=== PATIENT | female | born 1955 | race Caucasian/White ===

== ENCOUNTER 2016-09-24 05:58 | Emergency (ER) | payer OTHER ==
--- NOTE | 2016-09-24 06:48 | CT REPORT ---
HISTORY: Fall. COMPARISON: None. TECHNIQUE: This examination was performed using automated exposure control, adjustment of mA or kV according to patient size, and/or use of iterative reconstruction technique. Axial thin section images obtained f rom skull base through head of the clavicles. Sagittal and coronal reformat images obtained. FINDINGS: There is no fracture. There is no prevertebral soft tissue swelling. Alignment is normal. There is no lytic or sclerotic lesion. Mineralization is normal. There is no gross soft tissue abnormality. There is mild multilevel intervertebral disc space height loss. Mild multilevel facet arthropathy i s also seen. IMPRESSION: No acute fracture or malalignment of the cervical spine. Final Electronic Signature: This report was electronically signed by Angelica Kim MD on 09/24/2016 6:45 AM. robert /
--- NOTE | 2016-09-24 06:53 | CT REPORT ---
HISTORY: Fall. COMPARISON: CT from 01/13/2016. TECHNIQUE: Axial non-contrast images obtained from skull vertex through foramen magnum. Dose reduction technique was utilized. FINDINGS: There is focal encephalomalacia in the right frontal lobe, likely from prior injury. Ex-vacuo dilatat ion of the right frontal horn is seen. There is stable prominence of the ventricles and sulci. There is a stable partially calcified 2.5 cm mass in the midline, superior to the cerebellar hemisphere. T here is no hemorrhage. There is atherosclerotic calcification the cavernous internal carotid arterie s right-sided craniotomy changes are seen.. No midline shift is identified. The paranasal sinuses are clear. IMPRESSION: 1. No acute intracranial abnormality. 2. Stable partially calcified 2.5 cm mass in the midline, superior cerebellar hemisphere, likely rep resenting a meningioma. Final Electronic Signature: This report was electronically signed by Angelica Kim MD on 09/24/2016 6:51 AM. robert /
--- NOTE | 2016-09-24 07:41 | ER PHYSICIAN DOCUMENTATION ---
Physician Documentation [facility] Name:Cara Coto Age:61 yrs Sex:Female :1955 Arrival Date:09/24/2016 Time:05:58 BedTrauma-A Private MD:Tyrel Polo EDbharatBernardo Disposition: 09/24/16 06:58 Discharged to Home/Self Care. Impression: Head Contusion, Unspecified Part of Head, Hip Contusion - : Left. - Condition is Good. - Discharge Instructions: HIP CONTUSION, Acute Brain Injuries - HEAD INJURY, No Wake-Up (Adult). - Medical Reconciliation form form. - Follow up: Tyrel Polo MD; When: 7 - 10 days; Reason: Recheck today's complaints, Continuance of care. - Problem is new. - Symptoms have improved. HPI: 09/24 06:08 This 61 yrs old Female presents to ER via EMS with complaints of Fall Injury. cd 06:08 Details of fall: The patient fell from an upright position, while walking, while going cd to the bathroom today. Onset: The symptom(s)/episode began/occurred acutely, this morning, 1 hour(s) ago. Associated injuries: The patient sustained injury to the head, contusion, left hip, contusion, painful injury. Associated signs and symptoms: Pertinent positives: pelvic pain, Patient has a history of decreased responsiveness and assisted care at [facility]. She had a Brain Tumor removed at age 16 and her current mentation is normal for her. She was last seen at 4 PM, then the staff found her on the bathroom floor at 5 PM. Unknown LOC. She had had a BM on the floor. The patient complained of head injury ,left arm and left hip pain. 911 was called and the patient was brought to the ED by ambulance.. Severity of symptoms: At their worst the symptoms were moderate, in the emergency department the symptoms have improved, mildly. The patient has experienced similar episodes in the past. Historical: - Allergies: PENICILLINS; - Home Meds: 1. levothyroxine 175 mcg oral tab 1 tab once daily 2. prednisone 5 mg oral tab 1 tab once daily 3. aspirin 81 mg oral tab 1 tab once daily 4. furosemide 80 mg oral tab 1 tab once daily 5. lisinopril 20 mg oral tab 1 tab once daily 6. potassium chloride 20 mEq oral TbTQ 1 tab once daily 7. simvastatin 20 mg oral tab 1 tab once daily in the evening 8. Desmopressin Acetate Nasal - Tetanus: < 10 years. - Ebola Screening: : Patient negative for fever greater than or equal to 101.5 degrees Fahrenheit, and additional compatible Ebola Virus Disease symptoms. Patient denies exposure to infectious person. Patient denies travel to an Ebola-affected area in the 21 days before illness onset. No symptoms or risks identified at this time. . - Immunization history: Flu Vaccine < 1 year. - Social history: Smoking status: Patient states was never smoker of tobacco. Patient/guardian denies using alcohol, street drugs. ROS: 06:14 Constitutional: Negative for fever, poor PO intake. cd 06:14 MS/extremity: Positive for injury or acute deformity, contusion, of the left arm and left hip. 06:14 Unable to obtain ROS due to patient's inability to understand questions. Exam: 06:15 Head/Face: Normocephalic, atraumatic. cd Eyes: Pupils equal round and reactive to light, extra-ocular motions intact. Lids and lashes normal. Conjunctiva and sclera are non-icteric and not injected. Cornea within normal limits. Periorbital areas with no swelling, redness, or edema. ENT: Nares patent. No nasal discharge, no septal abnormalities noted. Tympanic membranes are normal and external auditory canals are clear. Oropharynx with no redness, swelling, or masses, exudates, or evidence of obstruction, uvula midline. Mucous membranes moist. Chest/axilla: Normal chest wall appearance and motion. Nontender with no deformity. No lesions are appreciated. Cardiovascular: Regular rate and rhythm with a normal S1 and S2. No gallops, murmurs, or rubs. Normal PMI, no JVD. No pulse deficits. Respiratory: Lungs have equal breath sounds bilaterally, clear to auscultation and percussion. No rales, rhonchi or wheezes noted. No increased work of breathing, no retractions or nasal flaring. Abdomen/GI: Soft, non-tender, with normal bowel sounds. No distension or tympany. No guarding or rebound. No evidence of tenderness throughout. Back: No spinal tenderness. No costovertebral tenderness. Full range of motion. 06:15 Skin: Warm, dry with normal turgor. Normal color with no rashes, no lesions, and no cd evidence of cellulitis. 06:15 Constitutional: The patient appears alert, awake, non-diaphoretic, non-toxic, well developed, well nourished, obese. 06:15 Musculoskeletal/extremity: Extremities: noted in the left arm: pain, ROM: limited active range of motion due to pain, Circulation is intact in all extremities. Sensation intact. 06:15 Neuro: Exam negative for acute changes. Vital Signs: 06:02 Pulse Ox 100% ; mk2 06:05 BP 151 / 72 (auto/); mk2 06:08 BP 151 / 72; Pulse 76; Resp 15; Temp 98.2; Pulse Ox 85% on R/A; Weight 117.93 kg; mk2 Height 5 ft. 8 in. (172.72 cm); Pain 3/10; 06:08 Body Mass Index 39.53 (117.93 kg, 172.72 cm) mk2 MDM: 06:00 Patient medically screened. cd 06:16 Differential diagnosis: closed head injury, contusion, fracture. cd 06:17 Data reviewed: vital signs, nurses notes, old medical records, and as a result, I will cd continue to observe the patient, order radiologic studie(s), CT scan, plain X-ray(s). Data interpreted: Pulse oximetry: on 4L(s) per nasal cannula, is 100 %. Interpretation: normal. 07:00 Counseling: I had a detailed discussion with the patient and/or guardian regarding: the cd historical points, exam findings, and any diagnostic results supporting the discharge/admit diagnosis, radiology results, the need for outpatient follow up, for a recheck, with the patient's primary care provider, to return to the emergency department if symptoms worsen or persist or if there are any questions or concerns that arise at home. Response to treatment: the patient's symptoms have resolved after treatment, the patient is now symptom free, and as a result, I will discharge patient. 07:00 Test interpretation: by ED physician or midlevel provider: plain radiologic studies, cd Pelvis and Left Hip X-Rays were negative for fracture. 09/24 06:50 Order name: CAT SCAN; CERVICAL [id number]; Complete Time: 06:56 EDMS 09/24 06:56 Interpretation: Normal: See Report. cd 09/24 06:54 Order name: CAT SCAN; HEAD W/O CON [id number]; Complete Time: 06:56 EDMT 09/24 06:56 Interpretation: Abnormal: See Report; No acute change. cd Dispensed Medications: No medications were administered Signatures: Isabella Pickett, Bernardo Lara RN, MD MD cd Kruger, Meg, DAWN SEYMOUR mk2
--- NOTE | 2016-09-24 07:41 | ER NURSING DOCUMENTATION ---
Nurse's Notes [facility] Name:Cara Coto Age:61 yrs Sex:Female :1955 Arrival Date:09/24/2016 Time:05:58 BedTrauma-A Private MD:Tyrel Polo Diagnosis:Head Contusion, Unspecified Part of Head;Hip Contusion-: Left Presentation: 09/24 06:01 Presenting complaint: Patient states: [facility] states she was found down in the 2 bathroom after a fall and complained of left hip pain. Pt had a tumor removed at a young age and is non verbal. Pt FSBS 90 in route. Transition of care: [facility]. 06:01 Method Of Arrival: EMS: 420 mk2 06:01 Acuity: NICKIE 3 2 Triage Assessment: 06:06 General: Appears in no apparent distress, Behavior is flat. Pain: Complains of pain in mk2 Pt makes a facial expression indicating pain when left hip is palpated. Pt has no expression when neck is palpated or upper back. Neuro: Level of Consciousness is awake, Oriented to none Speech Pt is non verbal. [facility] states this is a baseline. . Cardiovascular: No deficits noted. Respiratory: Breath sounds are clear bilaterally. Musculoskeletal: Circulation, motion, and sensation intact Capillary refill < 3 seconds. 06:13 Derm: no wounds are visualized during initial assessment. [facility] states that she mk2 expressed pain in her left arm and left leg but was conscious when they got to her at 5 am. Pt was in bed at 4 am rounds. Unable to determine LOC. Historical: - Allergies: PENICILLINS; - Home Meds: 1. levothyroxine 175 mcg oral tab 1 tab once daily 2. prednisone 5 mg oral tab 1 tab once daily 3. aspirin 81 mg oral tab 1 tab once daily 4. furosemide 80 mg oral tab 1 tab once daily 5. lisinopril 20 mg oral tab 1 tab once daily 6. potassium chloride 20 mEq oral TbTQ 1 tab once daily 7. simvastatin 20 mg oral tab 1 tab once daily in the evening 8. Desmopressin Acetate Nasal - Tetanus: < 10 years. - Ebola Screening: : Patient negative for fever greater than or equal to 101.5 degrees Fahrenheit, and additional compatible Ebola Virus Disease symptoms. Patient denies exposure to infectious person. Patient denies travel to an Ebola-affected area in the 21 days before illness onset. No symptoms or risks identified at this time. . - Immunization history: Flu Vaccine < 1 year. - Social history: Smoking status: Patient states was never smoker of tobacco. Patient/guardian denies using alcohol, street drugs. Screenin:13 Infectious Disease Risk None. Abuse screen: Denies threats or abuse. Nutritional mk2 screening: No deficits noted. Assessment: 06:13 See Triage Assessment done by same RN. mk2 Vital Signs: 06:02 Pulse Ox 100% ; mk2 06:05 BP 151 / 72 (auto/); mk2 06:08 BP 151 / 72; Pulse 76; Resp 15; Temp 98.2; Pulse Ox 85% on R/A; Weight 117.93 kg; mk2 Height 5 ft. 8 in. (172.72 cm); Pain 3/10; 06:08 Body Mass Index 39.53 (117.93 kg, 172.72 cm) mk2 ED Course: 05:59 Patient arrived in ED. em2 05:59 Tyrel Polo MD is Private Physician. em2 06:00 Bernardo Sutherland MD is Attending Physician. cd 06:01 Marcia Harris RN is Primary Nurse. mk2 06:03 Triage completed. mk2 06:[address] ms 06:12 Arm band placed on Bed in low position Call Light in Reach Gowned HOB Elevated Side mk2 rails up x2. 06:38 Patient moved back from CT. ms 06:57 Tyrel Polo MD is Referral Physician. cd 07:03 Valuables Remains with patient. Ice pack to injury. st Administered Medications: No medications were administered Outcome: 06:58 Discharge ordered by . cd 07:36 Condition: stable st 07:36 Discharge instructions given to Sister (POA) Instructed on discharge instructions, follow up and referral plans. 07:40 Discharged to home via ambulance. st 07:40 [address] the ED[address] st 0418 15:17 Discharge F/U Call: Unable to reach: no answer jose Signatures: Isabella Pickett RN RN st Abuso, Melanie, RN RN ma Daley, Chris, MD MD cd Strickland, Mary ms Marcia Harris RN RN 2 Meisona-reg, Teri-reg em2
--- NOTE | 2016-09-25 11:52 | RADIOLOGY REPORT ---
Five views of the left hip demonstrate no acute fracture or dislocation. Incidentally noted is healed right femoral neck fracture secured with three pins. The visualized joints appear unremarkable. IMPRESSION: No displaced injury is identified. Occult pelvic fractures are common in this age group and may require further evaluation and/or followup for detection. MTDD
== END 2016-09-24 07:41 | disposition home or self-care (01) ==
LOC: ER 05:58
DX: S00.93XA Contusion of unspecified part of head, initial encounter (principal); S70.02XA Contusion of left hip, initial encounter; M79.602 Pain in left arm; W19.XXXA Unspecified fall, initial encounter; Y92.121 Bathroom in nursing home as the place of occurrence of the external cause; Y93.01 Activity, walking, marching and hiking; Z79.899 Other long term (current) drug therapy; Z79.82 Long term (current) use of aspirin; I69.998 Other sequelae following unspecified cerebrovascular disease; Z74.3 Need for continuous supervision
CPT/HCPCS: 70450; 72125; 99284; A0425; A0429

== ENCOUNTER 2016-10-16 22:21 | Emergency (ER) | payer OTHER ==
--- NOTE | 2016-10-16 23:35 | ER NURSING DOCUMENTATION ---
Nurse's Notes [facility] Name:Cara Coto Age:61 yrs Sex:Female :1955 Arrival Date:10/16/2016 Time:22:21 Bed4 Private MD:Tyrel Polo Diagnosis:Knee Contusion;Toe Fracture;Toe Laceration Presentation: 10/16 22:26 Acuity: NICKIE 3 22:27 Presenting complaint: EMS states: PT was found while doing room checks and was on the floor. PT might have fallen using her walker getting into bed. She has some toenail trauma to the left foot as well as bruising to the left knee and thigh. PT has a small abrasion to the left islam as well. Transition of care: [facility]. 22:27 Method Of Arrival: EMS: 410 Triage Assessment: 22:30 General: Appears in no apparent distress, Behavior is cooperative. Pain: Complains of pain in left side of forehead, left quadriceps, left knee and dorsum of left foot. EENT: Oral mucosa is moist. Neuro: Level of Consciousness is awake, alert. Cardiovascular: Capillary refill < 3 seconds. Respiratory: Airway is patent Respiratory effort is even, unlabored, Respiratory pattern is regular, symmetrical. GI: Abdomen is obese. Derm: Skin is intact, is healthy with good turgor, Skin is pink, warm & dry. Bruising that is dark purple, on left quadriceps and left knee. Musculoskeletal: Circulation, motion, and sensation intact Range of motion intact in all extremities. Historical: - Allergies: PENICILLINS; - Home Meds: 1. levothyroxine 175 mcg oral tab 1 tab once daily 2. prednisone 5 mg oral tab 1 tab once daily 3. aspirin 81 mg oral tab 1 tab once daily 4. furosemide 80 mg oral tab 1 tab once daily 5. lisinopril 20 mg oral tab 1 tab once daily 6. potassium chloride 20 mEq oral TbTQ 1 tab once daily 7. simvastatin 20 mg oral tab 1 tab once daily in the evening 8. Desmopressin Acetate Nasal - PMHx: Head Contusion, Unspecified Part of Head (September 24, 2016); Hip Contusion - : Left (September 24, 2016); CVA; DIABETES INSIPIDUS; HYPOTHYROIDISM; BRAIN DISEASE; DEPRESSION; brain tumor; - PSHx: brain tumor removed; - Tetanus: < 10 years. - Ebola Screening: : Patient negative for fever greater than or equal to 101.5 degrees Fahrenheit, and additional compatible Ebola Virus Disease symptoms. - Immunization history: Flu Vaccine < 1 year. - Social history: Smoking status: unknown if patient ever smoked tobacco. Screenin:34 Infectious Disease Risk None. Abuse screen: Denies threats or abuse. Denies injuries rh from another. Nutritional screening: No deficits noted. Assessment: 22:34 See Triage Assessment done by same RN. rh Vital Signs: 22:33 BP 195 / 90; Pulse 84; Resp 18; Temp 98.5(O); Pulse Ox 98% on 2 lpm NC; Weight 122 kg; rh 22:33 Pt is unable to articulate her pain, she can nod yes to pain. rh ED Course: 22:22 Patient arrived in ED. em2 22:22 Tyrel Polo MD is Private Physician. em2 22:22 Notified ED Physician of patient's arrival and chief complaint. Dr. Santillan notified. rh 22:25 Oxygen Oxygen administration via nasal cannula Pt wears oxygen at home. rh 22:26 Malu Monzon is Primary Nurse. rh 22:26 Triage completed. rh 22:28 Roel Santillan MD is Attending Physician. tl1 22:34 Valuables Remains with patient Patient has correct armband on for positive rh identification. Bed in low position. Call light in reach. Side rails up X2. Family accompanied patient. 22:38 FOOT;[address] [place] [id number] In Process Unspecified. EDMS 22:48 KNEE; [address] [place] [id number] In Process Unspecified. EDMS 22:51 Port Xray Completed. cedric 22:51 FOOT;[address] [place] [id number] Sent. cedric 22:51 KNEE; [address] [place] [id number] Sent. cedric 23:15 Tyrel Polo MD is Referral Physician. tl1 23:15 Wound care to abrasion, located on Left second toenail was cleaned with soap and water, rh Irrigation Normal Saline Patient tolerated well. dressed with bacitracin, kerlex and coban. 23:25 Ortho shoe/post op shoe applied to left foot. rh Administered Medications: No medications were administered Outcome: 23:18 Discharge ordered by . tl1 23:33 Discharged to home via ambulance. rh 23:33 Condition: improved 23:33 Discharge instructions given to patient, family, Instructed on discharge instructions, follow up and referral plans. Demonstrated understanding of instructions. 23:34 Patient left the ED. 10/17 08:31 Discharge F/U Call: Spoke with: guardian of pt. Have you made a f/u appointment? yes lp What is the one thing you feel we could do to improve? Patient's answer: Sister stated patient is at [facility] and is doing better and will be going out today to check on patient Signatures: Dispatcher [employer] EDMS Krys Lomeli, RN RN lp Alee Moeller-reg, Teri-sera em2 Roel Santillan MD MD tl1 Malu Monzon
--- NOTE | 2016-10-16 23:35 | ER PHYSICIAN DOCUMENTATION ---
Physician Documentation [facility] Name:Cara Coto Age:61 yrs Sex:Female :1955 Arrival Date:10/16/2016 Time:22:21 Bed4 Private MD:Tyrel Polo ED Roel Garcia Disposition: 10/16 23:32 Chart complete. tl1 Disposition: 10/16/16 23:18 Discharged to Home/Self Care. Impression: Knee Contusion, Toe Fracture, Toe Laceration. - Condition is Good. - Discharge Instructions: CONTUSION, Lower Extremity, TOE LACERATION - LACERATION, Foot, TOE FRACTURE Closed - FRACTURE, Toe [Closed]. - Medical Reconciliation form form. - Follow up: Tyrel Polo MD; When: 4- 6 days; Reason: Recheck today's complaints, Continuance of care. - Problem is new. - Symptoms have improved. HPI: 10:28 This 61 yrs old Female presents to ER via EMS with complaints of Fall Injury. tl1 10:28 Details of fall: The patient fell from an upright position, while walking. Onset: The tl1 symptom(s)/episode began/occurred suddenly, just prior to arrival. Associated injuries: The patient sustained injury to the head, contusion, left knee, ecchymosis, swelling, left quadriceps, contusion, ecchymosis, Left second toenail, laceration, 0.6 cm(s). Associated signs and symptoms: Pertinent negatives: abdominal pain, nausea, vomiting. Severity of symptoms: At their worst the symptoms were mild, in the emergency department the symptoms are unchanged. Unable to obtain HPI due to Patient is aphasic, since a childhood brain tumor and a more recent stroke.. Historical: - Allergies: PENICILLINS; - Home Meds: 1. levothyroxine 175 mcg oral tab 1 tab once daily 2. prednisone 5 mg oral tab 1 tab once daily 3. aspirin 81 mg oral tab 1 tab once daily 4. furosemide 80 mg oral tab 1 tab once daily 5. lisinopril 20 mg oral tab 1 tab once daily 6. potassium chloride 20 mEq oral TbTQ 1 tab once daily 7. simvastatin 20 mg oral tab 1 tab once daily in the evening 8. Desmopressin Acetate Nasal - PMHx: Head Contusion, Unspecified Part of Head (September 24, 2016); Hip Contusion - : Left (September 24, 2016); CVA; DIABETES INSIPIDUS; HYPOTHYROIDISM; BRAIN DISEASE; DEPRESSION; brain tumor; - PSHx: brain tumor removed; - Tetanus: < 10 years. - Ebola Screening: : Patient negative for fever greater than or equal to 101.5 degrees Fahrenheit, and additional compatible Ebola Virus Disease symptoms. - Immunization history: Flu Vaccine < 1 year. - Social history: Smoking status: unknown if patient ever smoked tobacco. ROS: 22:41 Unable to obtain ROS due to Aphasic. tl1 Exam: 22:42 Constitutional: This is a well developed, well nourished patient who is awake, alert, tl1 and in no acute distress. 22:42 Head/face: Noted is abrasion(s), that are mild, of the left side of forehead, contusion, ecchymosis, nasal drainage, is not appreciated, tenderness, that is mild, of the left side of forehead. 22:42 Eyes: Pupils: equal, round, and reactive to light and accomodation, Mild right exotropia. 22:42 ENT: Exam is negative for acute changes. 22:42 Neck: Exam negative for acute changes, C-spine: vertebral tenderness, is not appreciated. 22:42 Cardiovascular: Rate: normal, Rhythm: regular, Heart sounds: normal, Edema: is not appreciated. 22:42 Respiratory: the patient does not display signs of respiratory distress, Respirations: normal, Breath sounds: are normal. 22:42 Abdomen/GI: Palpation: abdomen is soft and non-tender. 22:42 Musculoskeletal/extremity: Extremities: grossly normal except: noted in the left quadriceps: contusion, ecchymosis, noted in the left knee: contusion, ecchymosis, swelling, tenderness, noted in the Left second toenail: Joints: All joints are normal except the left knee displays swelling, tenderness. 22:42 Skin: Exam negative for acute changes. 22:42 Neuro: Orientation: unable to test, Mentation: unable to test, Memory: unable to test, Cranial nerves: grossly normal, Motor: moves all fours, Gait: not tested. Vital Signs: 22:33 BP 195 / 90; Pulse 84; Resp 18; Temp 98.5(O); Pulse Ox 98% on 2 lpm NC; Weight 122 kg; rh 22:33 Pt is unable to articulate her pain, she can nod yes to pain. rh MDM: 22:28 Patient medically screened. tl1 23:31 Data reviewed: vital signs, nurses notes, old medical records, and as a result, I will tl1 discharge patient. Test interpretation: by ED physician or midlevel provider: plain radiologic studies. Counseling: I had a detailed discussion with the patient and/or guardian regarding: the historical points, exam findings, and any diagnostic results supporting the discharge/admit diagnosis, radiology results, the need for outpatient follow up, to return to the emergency department if symptoms worsen or persist or if there are any questions or concerns that arise at home. Response to treatment: the patient's symptoms have mildly improved after treatment, and as a result, I will discharge patient. 10/16 22:38 Order name: FOOT;[address] [place] [id number] EDAR 10/16 22:48 Order name: KNEE; [address] [place] [id number] EDAR 10/17 14:36 Order name: FOOT;[address] [place] [id number] EDAR 10/16 22:35 Order name: Wound Care; Complete Time: 22:35 rh 10/16 23:16 Order name: Oxygen; Complete Time: 23:16 rh 10/16 23:28 Order name: Ortho: Post-Op Shoe; Complete Time: 23:28 rh Dispensed Medications: No medications were administered Signatures: Roel Santillan MD MD tl1 Malu Monzon
--- NOTE | 2016-10-17 13:40 | RADIOLOGY REPORT ---
Three views of the left foot without prior films for comparison demonstrates a small minimally displaced oblique intraarticular fracture involving the lateral and proximal aspect of the third middle phalanx. There is no significant displacement. No other fracture or dislocation is identified. The visualized joints appear unremarkable. IMPRESSION: Minimally displaced oblique intraarticular fracture involving the proximal portion of the left third middle phalanx as described. MTDD
--- NOTE | 2016-10-17 13:46 | RADIOLOGY REPORT ---
Five views of the left knee without prior films for comparison demonstrate no displaced fracture or dislocation. Degenerative changes of the patellofemoral joint are noted. The patella projects in a somewhat superior position raising concern for possible patellar tendon injury. Clinical correlation is necessary. IMPRESSION: 1. Degenerative changes of the patellofemoral joint. 2. Patellar positioning raises concern for possible patellar tendon injury. Clinical correlation is necessary. If clinically indicated further evaluation with MRI scanning may be of benefit. The findings were personally reviewed with Dr. Santillan at 0930 hours on 10/17/2016. BATSHEVA
== END 2016-10-16 23:35 | disposition home or self-care (01) ==
LOC: ER 22:21
DX: S80.02XA Contusion of left knee, initial encounter (principal); S92.512A Displaced fracture of proximal phalanx of left lesser toe(s), initial encounter for closed fracture; S00.83XA Contusion of other part of head, initial encounter; S00.81XA Abrasion of other part of head, initial encounter; S70.12XA Contusion of left thigh, initial encounter; S91.115A Laceration without foreign body of left lesser toe(s) without damage to nail, initial encounter; W19.XXXA Unspecified fall, initial encounter; Y92.122 Bedroom in nursing home as the place of occurrence of the external cause; Y93.01 Activity, walking, marching and hiking; R47.01 Aphasia; Z85.841 Personal history of malignant neoplasm of brain; I69.998 Other sequelae following unspecified cerebrovascular disease; E23.2 Diabetes insipidus; Z79.899 Other long term (current) drug therapy; Z79.82 Long term (current) use of aspirin; Z74.3 Need for continuous supervision
CPT/HCPCS: 99284; A0425; A0429